=== PATIENT | male | born 1960 | race Caucasian/White ===

== ENCOUNTER 2022-01-26 00:44 | Emergency (ER) | payer SELFPAY ==
[~2022-01-26] VITALS: Ht 170.2 cm; Wt 74.8 kg
[2022-01-26] MEDS ORDERED: CLOP75TA15 PO (01:03)
[2022-01-26] MEDS ORDERED: RANO500T3 PO (01:03)
[2022-01-26] MEDS ORDERED: [UNRECOGNIZED DRUG - OTHER] PO (01:03)
[2022-01-26] MEDS ORDERED: LINA5TAB PO (01:03)
[2022-01-26] MEDS ORDERED: OMEP20CA15 PO (01:03)
[2022-01-26] MEDS ORDERED: ASPI81TA31 PO (01:03)
[2022-01-26] MEDS ORDERED: [UNRECOGNIZED DRUG - OTHER] PO (01:03)
--- NOTE | 2022-01-26 01:20 | NUR ---
pt in room 5a for c/o skin rash on left hand
--- NOTE | 2022-01-26 01:26 | NUR ---
Dr. Sanchez at bedside for MSE.
[2022-01-26] MEDS ORDERED: diphenhydrAMINE 50 MG/1 ML VIAL IM ONE (01:45)
[2022-01-26] MEDS ORDERED: diphenhydrAMINE 50 MG/1 ML VIAL ONE (01:46)
[2022-01-26 02:18] LABS: HEMATOCRIT 38.4 % (36.7-47.1); MEAN CORPUSCULAR VOLUME 89.2 fL (73.0-96.2); PLATELET COUNT (AUTO) 171 K/uL (152-348)
[2022-01-26 02:24] LABS: CREATININE 2.3 mg/dL (0.6-1.3); POTASSIUM 4.1 mmol/L (3.5-5.1)
[2022-01-26 02:35] LABS: BILIRUBIN,DIRECT 0.1 mg/dL (0.0-0.2); BILIRUBIN,TOTAL 0.4 mg/dL (0.2-1.0); TOTAL PROTEIN, SERUM 7.3 g/dL (6.4-8.2)
[2022-01-26] MEDS ORDERED: HYDR-500 PO (03:28)
[2022-01-26] MEDS ORDERED: CEPH250C PO (03:29)
--- NOTE | 2022-01-26 03:39 | NUR ---
Patient discharged to home in stable condition. Written and verbal after care instructions given. Patient verbalizes understanding of instructions. Stressed follow up or return to ER for worsening s/s.
[2022-01-26 03:40] VITALS: BP 154/79
== END 2022-01-26 03:40 | disposition home or self-care (01) ==
LOC: ER 00:53
DX: L03.114 Cellulitis of left upper limb (principal); R21 Rash and other nonspecific skin eruption; E11.9 Type 2 diabetes mellitus without complications; Z79.84 Long term (current) use of oral hypoglycemic drugs; Z79.02 Long term (current) use of antithrombotics/antiplatelets
CPT/HCPCS: 36415; 80048; 80076; 82962; 85025; 96372; 99283; J1200; A4663